=== PATIENT | female | born 1980 | race African-American/Black ===

== ENCOUNTER 2021-09-17 03:03 | Emergency (ER) | payer OTHER ==
[~2021-09-17] VITALS: Ht 160 cm; Wt 80.3 kg
[~2021-09-17 03:03] MED LIST: LEVSIN/SL0.125 MG SL
== END 2021-09-17 08:55 | disposition home or self-care (01) ==
LOC: ER 03:03
DX: R51.9 Headache, unspecified (principal); T50.995A Adverse effect of other drugs, medicaments and biological substances, initial encounter; R07.89 Other chest pain

== ENCOUNTER 2021-11-13 22:05 | Emergency (ER) | payer OTHER ==
[~2021-11-13] VITALS: Ht 160 cm; Wt 81.6 kg
== END 2021-11-14 02:08 ==
LOC: ER 22:05
DX: R00.2 Palpitations (principal); R07.89 Other chest pain; F41.0 Panic disorder [episodic paroxysmal anxiety]; F41.9 Anxiety disorder, unspecified

== ENCOUNTER 2022-06-18 12:14 | Emergency (ER) | payer OTHER ==
[~2022-06-18] VITALS: Ht 160 cm; Wt 78.9 kg
== END 2022-06-18 16:58 | disposition home or self-care (01) ==
LOC: ER 12:14
DX: M54.2 Cervicalgia (principal); Z20.822 Contact with and (suspected) exposure to COVID-19

== ENCOUNTER 2022-10-02 16:59 | Emergency (ER) | payer OTHER ==
[~2022-10-02] VITALS: Ht 167.6 cm; Wt 72.6 kg
[2022-10-03] MEDS ORDERED: ONDANSETRON ODT4 MG PO ×2 (05:11→05:12)
[2022-10-03] MEDS ORDERED: LEVSIN/SL0.125 MG SL (05:11)
[2022-10-03] MEDS ORDERED: INTESTINEX680 M1 PO (05:11)
== END 2022-10-03 05:17 ==
LOC: ER 16:59
DX: K52.89 Other specified noninfective gastroenteritis and colitis (principal); A08.8 Other specified intestinal infections

== ENCOUNTER → 2024-09-28 | Emergency (ER) | payer OTHER ==
[~2024-09-28] VITALS: Ht 160 cm; Wt 68.5 kg
[~2024-09-28] MED LIST changes: +INTESTINEX680 M1 PO; +ONDANSETRON ODT4 MG PO; +TOPROL XL50 M1 PO; +hydrOXYzine PAMOATE 50 MG CAPSULE PO ONE; +hydrOXYzine PAMOATE 50 MG CAPSULE PO STA
[2024-09-28 15:04] LABS: HEMOGLOBIN 11.1 g/dL (12.0-15.00); MEAN CELL VOLUME 90.6 fL (80.00-100.00); MEAN CORPUSCULAR HEMOGLOBIN 30.4 pg (27.00-32.0); MEAN CORPUSCULAR HGB CONC 33.6 g/dl (32.0-36.0); PLATELET COUNT 272 K/uL (150-450); RED BLOOD COUNT 3.65 M/uL (4.00-6.00); RED CELL DISTRIBUTION WIDTH 13.3 % (11.5-14.5)
[2024-09-28 15:29] LABS: CALCIUM 9.5 mg/dL (8.5-10.1); CREATININE SERUM 0.82 mg/dL (0.55-1.02); GFR 75.39; POTASSIUM 4.47 mEq/L (3.5-5.1)
== END | disposition home or self-care (01) ==
LOC: ER 12:37
PROVIDERS: General Practice
DX: F41.9 Anxiety disorder, unspecified (principal); R53.81 Other malaise